=== PATIENT | male | born 1970 | race Caucasian/White ===

== ENCOUNTER 2016-08-04 20:28 | Emergency (ER) | payer OTHER ==
[~2016-08-04] VITALS: Ht 188 cm; Wt 159.6 kg
[~2016-08-04 20:28] MED LIST: LISI20TA3 PO; MULT1CAP17 PO
[2016-08-04 20:30] VITALS: TEMP 37.5; Ht 188 cm; Wt 159.6 kg
[2016-08-04] MEDS ORDERED: HYDR25TA4 PO (21:41)
[2016-08-04] MEDS ORDERED: LISI-461 PO (21:41)
[2016-08-04] MEDS ORDERED: TPRSR25 PO (21:41)
[2016-08-04] MEDS ORDERED: AMLO-110 PO (21:41)
[2016-08-04] MEDS ORDERED: ACET-1256 PO (21:43)
[2016-08-04] MEDS ORDERED: DEXT1SYP PO (21:43)
--- NOTE | 2016-08-04 22:12 | EMERGENCY ROOM VISIT NOTE ---
History First contact with patient: 21:16 Chief Complaint: COUGH Stated Complaint: DIZZY SPELLS FROM COUGHING, COLD SYMPTOMS Nursing Triage Summary: Patient states "I had a coughing fit and my head was lightheaded tonight. I am not sure if I loss consciousness." History of Present Illness The patient is a 45 year old male who presents to the Emergency Room with complaints of upper respiratory symptoms. The patient states that he has had a cough for the last 4 days. The patient reports paroxysms of coughing. The patient states the cough is nonproductive. He has not had a fever. He states that he was in [place] on a business trip and had a meeting with pedal from [facility] who were quite sick with upper respiratory symptoms. He denies any true pain in his chest but does report some pain with deep inspiration. He denies any abdominal pain, nausea or vomiting. He denies any diarrhea. He denies any extremity swelling. The patient states that today he was seated in his chair and had a paroxysm of cough. The patient states that he felt very lightheaded and is not sure if he had a loss of consciousness. He did not fall to the ground. He states that afterwards he felt back to normal. Review of Systems A 10 system review of systems was completed with positives and pertinent negatives listed in the HPI. Past Medical/Surgical History Medical Problems: (1) Benign hypertension Social History Smoking Status: Never Smoker Alcohol Use: none Occupation Status: employed Current/Historical Medications Scheduled Amlodipine (Norvasc), 5 MG PO QAM Azithromycin (Zithromax), 250 MG PO DAILY Hydrochlorothiazide (Hctz), 25 MG PO QAM Lisinopril (Lisinopril), 2 TABS PO QAM Metoprolol Succinate (Metoprolol Succinate ER), 25 MG PO QPM Multiple Vitamins W/ Minerals (Multi For Him), 1 CAPSULE PO DAILY Scheduled PRN Acetaminophen (Tylenol), 1,000 MG PO DIRECTED PRN for Pain Dextromethorphan-Guaifenesin (Robitussin Peak Cold Dm), 10 ML PO DIRECTED PRN for Cough Allergies Coded Allergies: No Known Allergies (Unverified , 08/04/16) Physical Exam Vital Signs Date Time Temp Pulse Resp B/P Pulse Ox O2 Delivery O2 Flow Rate FiO2 08/05/16 00:01 85 20 148/88 98 Room Air 08/04/16 23:22 78 20 171/92 97 Room Air 08/04/16 20:35 98 Room Air 08/04/16 20:30 37.5 86 18 181/94 98 Room Air Physical Exam VITALS: Vitals are noted on the nurse's note and reviewed by myself. Vital signs stable. The temperature is 37.5C. He is not tachycardic or hypoxic. GENERAL: This is a 45-year-old male, in no acute distress, nondiaphoretic, well- developed well-nourished. SKIN: The skin was without rashes, erythema, edema, or bruising. There is no tenting of the skin. Capillary reflex less than 2 seconds. HEAD: Normocephalic atraumatic. EARS: External auditory canals clear, tympanic membranes pearly harris without erythema or effusion bilaterally. EYES: Pupils equal round and reactive to light and accommodation. Conjunctivae without injection, sclerae without icterus. Extraocular movements intact. NOSE: Patent, turbinates inflamed with clear discharge. MOUTH: Mucous membranes moist. Tonsils are not enlarged. Pharynx without erythema or exudate. Uvula midline. Airway patent. Tongue does not deviate. NECK: Supple without nuchal rigidity. No lymphadenopathy. No thyromegaly. Cervical spine is nontender. No JVD. HEART: Regular rate and rhythm without murmurs gallops or rubs. LUNGS: Clear to auscultation bilaterally without wheezes, rales or rhonchi. No retractions or accessory muscle use. MUSCULOSKELETAL: No muscle atrophy, erythema, or edema noted. Full range of motion in all extremities. Normal gait. Strength 5/5 throughout. NEURO: Patient was alert and oriented to person place and time. No focal neurological deficits. Medical Decision & Procedures ER Provider Diagnostic Interpretation: Chest x-ray was obtained and reviewed by myself and Dr. Stovall. It reveals some mild right perihilar fullness but no obvious infiltrate Laboratory Results 08/04/16 22:00 Red Blood Count 5.70, Mean Corpuscular Volume 84.9, Mean Corpuscular Hemoglobin 29.8, Mean Corpuscular Hemoglobin Concent 35.1, Mean Platelet Volume 10.5, Neutrophils (%) (Auto) 70.7, Lymphocytes (%) (Auto) 17.7, Monocytes (%) (Auto) 9.1, Eosinophils (%) (Auto) 1.6, Basophils (%) (Auto) 0.5, Neutrophils # (Auto) 6.64, Lymphocytes # (Auto) 1.66, Monocytes # (Auto) 0.86, Eosinophils # (Auto) 0.15, Basophils # (Auto) 0.05 08/04/16 22:00 Test 08/04/16 21:50 08/04/16 22:00 08/04/16 22:14 08/04/16 23:03 Influenza Type A Antigen Neg for Influ A (NEG) Influenza Type B Antigen Neg for Influ B (NEG) White Blood Count 9.40 K/uL (4.8-10.8) Red Blood Count 5.70 M/uL (4.7-6.1) Hemoglobin 17.0 g/dL (14.0-18.0) Hematocrit 48.4 % (42-52) Mean Corpuscular Volume 84.9 fL (80-100) Mean Corpuscular Hemoglobin 29.8 pg (25-34) Mean Corpuscular Hemoglobin Concent 35.1 g/dl (32-36) Platelet Count 293 K/uL (130-400) Mean Platelet Volume 10.5 fL (7.4-10.4) Neutrophils (%) (Auto) 70.7 % Lymphocytes (%) (Auto) 17.7 % Monocytes (%) (Auto) 9.1 % Eosinophils (%) (Auto) 1.6 % Basophils (%) (Auto) 0.5 % Neutrophils # (Auto) 6.64 K/uL (1.4-6.5) Lymphocytes # (Auto) 1.66 K/uL (1.2-3.4) Monocytes # (Auto) 0.86 K/uL (0.11-0.59) Eosinophils # (Auto) 0.15 K/uL (0-0.5) Basophils # (Auto) 0.05 K/uL (0-0.2) RDW Standard Deviation 40.6 fL (36.4-46.3) RDW Coefficient of Variation 13.2 % (11.5-14.5) Immature Granulocyte % (Auto) 0.4 % Immature Granulocyte # (Auto) 0.04 K/uL (0.00-0.02) Prothrombin Time 10.8 SECONDS (9.0-12.0) Prothromb Time International Ratio 1.0 (0.9-1.1) Activated Partial Thromboplast Time 30.3 SECONDS (21.0-31.0) Partial Thromboplastin Ratio 1.2 Anion Gap 12.0 mmol/L (3-11) Est Creatinine Clear Calc Drug Dose 135.8 ml/min Estimated GFR () 93.5 Estimated GFR (Non- 80.6 BUN/Creatinine Ratio 11.5 (10-20) Calcium Level 9.1 mg/dl (8.5-10.1) Total Bilirubin 0.4 mg/dl (0.2-1) Aspartate Amino Transf (AST/SGOT) 30 U/L (15-37) Alanine Aminotransferase (ALT/SGPT) 45 U/L (12-78) Alkaline Phosphatase 68 U/L (45-117) Total Protein 7.7 gm/dl (6.4-8.2) Albumin 3.6 gm/dl (3.4-5.0) Globulin 4.1 gm/dl (2.5-4.0) Albumin/Globulin Ratio 0.9 (0.9-2) Chemistry Specimen Hemolysis Bedside D-Dimer 389 ng/mlFEU (0-450) Bedside Troponin I 0.000 ng/ml (0-0.045) Urine Color YELLOW Urine Appearance CLEAR (CLEAR) Urine pH 7.0 (4.5-7.5) Urine Specific [place] 1.010 (1.000-1.030) Urine Protein NEG (NEG) Urine Glucose (UA) NEG (NEG) Urine Ketones NEG (NEG) Urine Occult Blood TRACE (NEG) Urine Nitrite NEG (NEG) Urine Bilirubin NEG (NEG) Urine Urobilinogen NEG (NEG) Urine Leukocyte Esterase NEG (NEG) Urine WBC (Auto) 1-5 /hpf (0-5) Urine RBC (Auto) 0-4 /hpf (0-4) Urine Hyaline Casts (Auto) 0 /lpf (0-5) Urine Epithelial Cells (Auto) 0-5 /lpf (0-5) Urine Bacteria (Auto) NEG (NEG) Medications Administered Medications (Trade) Dose Ordered Sig/Aditi Route Start Time Stop Time Status Last Admin Dose Admin Hydrocodone Bit/ Homatropine Methylb (Hycodan Elix Homepack 5/1.5MG/ 5ML) 1 homepack UD ONCE PO 2/16/17 23:45 08/04/16 23:46 DC 08/05/16 00:03 1 HOMEPACK Azithromycin (Zithromax Tab) 500 mg NOW ONCE PO 08/04/16 23:45 08/04/16 23:46 DC 08/05/16 00:03 500 MG Procedure 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 They maintained a normal sinus rhythm without ectopy. ECG Indication: SOB/dyspnea Rate (beats per minute): 84 Rhythm: normal sinus Findings: no acute ischemic change Change: no significant change ED Course The patient was seen and examined. Previous visits were reviewed. The patient does not have a fever or leukocytosis. He does not have any significant electrolyte abnormalities. Troponin was not elevated. D-dimer was not elevated. Urinalysis was negative. Influenza was negative. Chest x-ray does not reveal any obvious infiltrate The patient has had paroxysms of cough and upper respiratory tract infection for the last 4 days. The patient had the episode of coughing to the point that he likely had a vasovagal episode. The patient has had stable vital signs. D- dimer is not elevated. Although he had recent travel, pulmonary embolus is considered less likely. He did have sick contacts. The patient will be placed on a Z-Kahlil and given a take-home pack of Hycodan. He should return to the ER if any worsening symptoms. Otherwise, he should follow-up with his family doctor next week for a recheck. The case was discussed with Dr. Stovall who agrees with the assessment and treatment plan Medical Decision DIFFERENTIAL DIAGNOSIS: Aortic dissection, myocarditis, pericarditis, cervical disc disease, costochondritis, herpes zoster, rib fracture, pleuritis, pneumonia , pulmonary embolus, tension pneumothorax, anxiety disorder, somatoform disorder , choledocholithiasis, status, esophagitis, esophageal spasm, esophageal reflux , esophageal rupture, pancreatitis, peptic ulcer disease, cardiac ischemia, ST elevation [place], acute coronary syndrome, arrhythmia, coronary artery vasospasm. vavular heart disease, coronary artery disease, among others. [place] Drug Monitoring Program Search Results: patient reviewed within database, no issues identified Impression Primary Impression: Acute bronchitis Additional Impressions: Vasovagal near syncope Dyspnea Departure Information Dispostion Home / Self-Care Condition GOOD Prescriptions Azithromycin (Zithromax) 250 Mg Tab 250 MG PO DAILY for 4 Days, #4 TAB Prov: William, Nita A., PA-C 08/04/16 Referrals Pro,Crispin Pineda M.D. (PCP) Patient Instructions Bronchitis Acute, My [facility] Additional Instructions Zithromax once daily for 4 days Hycodan 1 teaspoon every 4-6 hours as needed for cough; this does contain a narcotic. Do not drive or operate machinery when taking the Hycodan. Return with any worsening symptoms. Otherwise, follow up with your family doctor next week. Problem Qualifiers Primary Impression: Acute bronchitis Additional Impressions:
[2016-08-04 22:26] LABS: BASO % 0.5 %; BASO ABS # 0.05 K/uL (0-0.2); COMPLETE YES; EOS % 1.6 %; HEMATOCRIT 48.4 % (42-52); IG% 0.4 %; LYMPH % 17.7 %; LYMPH ABS # 1.66 K/uL (1.2-3.4); MEAN CELL VOLUME 84.9 fL (80-100); MEAN CORPUSCULAR HEMOGLOBIN 29.8 pg (25-34); MEAN CORPUSCULAR HGB CONC 35.1 g/dl (32-36); MEAN PLATELET VOLUME 10.5 fL (7.4-10.4); MONO % 9.1 %; NEUT % 70.7 %; PLATELET COUNT 293 K/uL (130-400)
[2016-08-04 22:48] LABS: PARTIAL THROMBOPLASTIN RATIO 1.2; PROTHROMBIN TIME (PATIENT) 10.8 SECONDS (9.0-12.0)
[2016-08-04 22:50] LABS: ALB/GLOB RATIO 0.9 (0.9-2); BUN/CREATININE RATIO 11.5 (10-20); CALCIUM 9.1 mg/dl (8.5-10.1); CREATININE 1.1 mg/dl (0.60-1.40); POTASSIUM 3.8 mmol/L (3.5-5.1)
[2016-08-04 23:27] LABS: URINE APPEARANCE CLEAR (CLEAR); URINE BILIRUBIN NEG (NEG); URINE COLOR YELLOW; URINE EPITHELIAL CELL AUTO 0-5 /lpf (0-5); URINE NITRITE NEG (NEG); UROBILINOGEN NEG (NEG); ZZUR CULT IF INDIC CLEAN CATCH NO
[2016-08-04 23:34] LABS: MANUAL MICROSCOPIC REQUIRED? NO; REVIEW REQ? NO
[2016-08-04] MEDS ORDERED: HYCODAN 60ML BOTTLE HOMEPACK PO ONE (23:45)
[2016-08-04] MEDS ORDERED: AZITHROMYCIN 250 MG TAB PO ONE (23:45)
[2016-08-04] MEDS ORDERED: AZIT250T PO (23:48)
[2016-08-05 00:01] VITALS: BP 148/88; PULSE 85; O2SAT 98
--- NOTE | 2016-08-05 06:46 | DIAGNOSTIC IMAGING REPORT ---
CHEST 2 VIEWS ROUTINE CLINICAL HISTORY: Cough. COMPARISON STUDY: Chest radiograph September 20, 2012. FINDINGS: Lung volumes are normal. There is mild elevation of the right hemidiaphragm. This is unchanged. There is no evidence of pulmonary edema. No consolidation is identified. Cardiac size is normal. Mediastinal contours are normal. There is no evidence of pulmonary edema. IMPRESSION: No acute cardiopulmonary findings. Electronically signed by: James Herron M.D. 08/05/2016 6:45 AM Dictated Date/Time: 08/05/2016 6:44 AM
== END 2016-08-05 00:11 | disposition home or self-care (01) ==
LOC: C.EDB 20:30 → C.EDC 08-05 00:11
DX: J20.9 Acute bronchitis, unspecified (principal); R55 Syncope and collapse; R06.00 Dyspnea, unspecified; I10 Essential (primary) hypertension; Z79.899 Other long term (current) drug therapy

== ENCOUNTER → 2017-09-01 | Outpatient (CLI) | payer OTHER ==
[~2017-09-01] MED LIST changes: +ACET-1256 PO; +AMLO-110 PO; +DEXT1SYP PO; +HYDR25TA4 PO; +LISI-461 PO; -LISI20TA3 PO; +TPRSR25 PO
[2017-09-01 12:28] LABS: ALT/SGPT 48 U/L (12-78); AST/SGOT 25 U/L (15-37); BLOOD UREA NITROGEN 16 mg/dl (7-18); CARBON DIOXIDE 24 mmol/L (21-32); CREATININE 1.07 mg/dl (0.60-1.40); GLUCOSE 103 mg/dl (70-99); POTASSIUM 3.7 mmol/L (3.5-5.1); SODIUM 137 mmol/L (136-145)
[2017-09-01 12:32] LABS: CHOLESTEROL 198 mg/dl (0-200); LDL CHOLESTEROL CALCULATED 126 mg/dl
== END | disposition home or self-care (01) ==
LOC: C.LAB1850 10:53
PROVIDERS: ATTEND Internal Medicine
DX: E78.5 Hyperlipidemia, unspecified (principal); I10 Essential (primary) hypertension